=== PATIENT | female | born 1985 | race Two or more races ===

== ENCOUNTER → 2025-01-04 09:04 | Outpatient (REF) | payer BC, SELFPAY | LOC: HWWDC 09:04 | PROVIDERS: ATTENDING PHYSICIAN Family Medicine | DX: Z12.39 Encounter for other screening for malignant neoplasm of breast (principal) | CPT/HCPCS: 77063; 77067 ==

== ENCOUNTER → 2025-01-04 09:26 | Outpatient (REF) | payer BC, SELFPAY | LOC: HWRCS 09:26 | PROVIDERS: ATTENDING PHYSICIAN Internal Medicine; FAMILY PHYSICIAN Family Medicine | DX: R00.2 Palpitations (principal) | CPT/HCPCS: 93306 ==